=== PATIENT | female | born 1945 | race Caucasian/White ===

== ENCOUNTER 2021-05-15 07:18 | Emergency (ER) | payer OTHER, MEDICAID | END 2021-05-15 11:34 | LOC: ER 07:18 | PROVIDERS: Emergency Medicine | DX: F41.9 Anxiety disorder, unspecified (principal); Z20.822 Contact with and (suspected) exposure to COVID-19; Z91.041 Radiographic dye allergy status; Z88.8 Allergy status to other drugs, medicaments and biological substances ==

== ENCOUNTER 2021-05-15 12:01 | Inpatient (IN) | payer OTHER, MEDICAID ==
[~2021-05-15] VITALS: Ht 157.5 cm; Wt 56.8 kg
[2021-05-15 13:27] VITALS: BP 177/94
--- NOTE | 2021-05-15 14:53 | NUR ---
NEW ADMISSION FROM [facility] BROUGHT TO US FROM [facility]. 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 PATIENT HAS EXTREME ANXIETY AND RATES IT A 10, PATIENT HAS SEVERAL MEDICAL ISSUES. HTN,IBS,COPD,CHF, HAD UTI 05/15/21 WAS ON 10 DAY KEFLEX REGIME. PATIENT ALSO HAS CHRONIC PAIN PATIENT IS PLEASANT COOPERATIVE BUT VERY ANXIOUS. PATIENT GIVEN HALDOL 2.5 MG AND HALDOL 0.5 MG AT 1502 FOR ANXIETY. PATIENTS ABDOMNEN SOFT BOWEL SOUNDS PRESENT, PATIENTS LUNGS CLEAR PATIENT SAT IN DAY ROOM LISTENING TO GROUP. I CALLED PATIENTS SON KAIRA RAMÍREZ TO GET PERMISSION FOR CONSENTS; AND CODE GIVEN. WILL CONTINUE TO MONITOR PATIENT FOR SAFETY AND BEHAVIORS.
[2021-05-15 20:00] VITALS: BP 166/75
[2021-05-16 04:52] LABS: CHOLESTEROL 214 mg/dL (<200); HDL CHOLESTEROL 62 mg/dL (>40); LDL CHOLESTEROL 128 mg/dL (<100); TC:HDL 3.5 Ratio (Not establshd); TRIGLYCERIDE 122 mg/dL (<150); VLDL 24 mg/dL (<40)
[2021-05-16 05:15] LABS: SERUM ASSESSMENT c
[2021-05-16 09:55] VITALS: BP 153/66
--- NOTE | 2021-05-16 14:14 | NUR ---
Assumed pt care at 0700. pt was alert and oriented x4. Assessments completed, vss. Lungs clear, active bowel sound. Denies si/hi, denies pain. C/O nausea, zofran administered as ordered. Took meds whole, no difficulty noted. Ambulates with a W/C. pt is always seeking for meds this shift. Calm and cooperative with care. Requested for Ativan and hadol. Dr Shepherd notified. Pt wheels self out of her room to seek for meds. AT this time pt is in the day room requesting for Ativan ZOFRAN. WIll continue to monitor.
[2021-05-16 20:00] VITALS: BP 150/56
[2021-05-17 01:06] LABS: GLYCOHEMOGLOBIN (HGB A1C) 5.8 % (4.8-5.6)
--- NOTE | 2021-05-17 07:19 | NUR ---
05-16-21 CARE TRANSFERRED 0 OBSERVED PT SITTING IN DAY ROOM. LATER PT AAOX4, VSS, RR EVEN AND NONLABORED ON RA. PT DENIES SI/HI AND PAIN. PT PRESENTS CALM AND COOPERATIVE. DURING MEDICATION ADMIN PT REPORTED THAT HER OXYCONDONE IS MISSING, PT REPORTED THAT SHE HAS BEEN TAKING THIS MEDICATION FOR 50 YEARS, PT SOMATIC REQUESTING MEDICATION. PT HAD NO DIFFICULTIES TAKING MEDICATION WHOLE WITH WATER. LATER PT REPORTED SHE WAS WITHDRAWALING, PT SKIN W/D, NO TREMORS NOTED, PT REPORTED HAVING 3 BM ON AM SHIFT, ABD SOFT AND ACTIVE. NO ACTIVE S/S OF WITHDRAWL. PT CONTINUED TO BE MONITOR PER [facility] PROTOCOL.
[2021-05-17 09:41] VITALS: BP 156/59
--- NOTE | 2021-05-17 17:05 | NUR ---
Assumed pt care at 0700. pt was alert and oriented x4. Assessments completed, vss. Lungs clear, active bowel sound. Denies si/hi, denies pain but requested for oxycondone upon Am assessments. Pt stated she sees snakes in her bed and the are crawling all over her skin, because she has not taking her oxycondone. Pt was redirected. PRN ativan was administered for anxiety. Zofran was administered for Nausea. Ambulates with w/c and a walker. Took meds whole, no difficulty noted. Continent of bowel and bladder. Attention seeking all through the shift. Med seeking every 3O minutes. pt Stated she felt great after taking her oxycondone, AND she was able to eat her dinner. 1412 pt rated her pain at 8. AT this time pt stated she feels great. pt is currently in the day room. WILL CONTINUE TO MONITOR.
[2021-05-17 19:08] VITALS: BP 157/86
--- NOTE | 2021-05-18 04:34 | NUR ---
05-18-21 CARE TRANSFERRED 1899 OBSERVED PT IN W/CHAIR IN [facility]. LATER PT AAOX4, VSS, RR EVEN AND NONLABORED ON RA, PT DENIES SI/HI. PT REPORTS GENERLIZED PAIN AND SCORES AT AN 8 ON 0-10 SCALE. DURING MEDICATION ADMIN PT HAD NO DIFFICULTE TAKING MEDICATIO NWHOLE WITH WATER. REASSESSMENT PT SCORED PAIN AT A 4 ON 0-10 SCALE. LATER OBSERVED PT RESTING WITH EYES CLOSED. THEM PT CAME TO NURSING STATION AND STATED "HER LEGS WERE CRAMPING", NOTED MUSCLE WAS NOT TENSE. PT WANTED TO KNOW IF SHE COULD GET HER OXY AGAIN, PT EDUCATED THAT PAIN MEDICATION WAS SCHEDULE. PT REMAINED CALM AND COOPERATIVE, PT PRESENTS SOMATIC R/T DRUGS. PT WILL CONTINUE TO BE MONITOR PER [facility] PROTOCOL.
--- NOTE | 2021-05-18 09:16 | H ---
[facility] [place] [address] HISTORY AND PHYSICAL Name: MILAGRO GOMEZ Room #: 521B-B ADM IN M.R.#: [id number] Admission: 05/15/21 Attend Phys: Rashad Shepherd DO Discharge: Date of : 43 Report #: [id number] THIS REPORT FOR: cc: FAM - Family physician unknown FAM - Family physician unknown Rashad Shepherd DO ~ DATE OF SERVICE: 05/15/2021 INPATIENT PSYCHIATRIC EVALUATION ATTENDING PSYCHIATRIST: Rashad Shepherd DO VISCOSITY INSPECTOR: Rashad Mills MD ASSISTED DOCTOR: Dr. Humza Ornelas. SOURCES OF INFORMATION: Brief interview with the patient, voluminous records from [facility], where I believe the patient was just in the ER, but she may have had a brief medical stay, the patient will be a no code. CHIEF COMPLAINT: Anxious for 4 days. HISTORY OF PRESENT ILLNESS: This is a 76-year-old female, I believe, she is . She resides at [facility]. She presented to the [facility] Emergency Room with severe anxiety for 4 days' time. Meds are not helping. The patient has not slept in 3 days. She gives a history of alcoholism 30 years ago, but none recent, major depression and anxiety, possibly schizophrenia. Medical problems are noted to be hypertension, COPD, irritable bowel syndrome, chronic pain, congestive heart failure, UTI diagnosed in 05/15/2021. ALLERGIES: CONTRAST DYE, stopped breathing, MIRALAX AND SEROQUEL. LABORATORY DATA: The patient had a 12-lead EKG done in [facility], which showed a QTc by Fridericia 14 milliseconds, Bazett 145 milliseconds. R-R interval 156 milliseconds. Ventricular rate of 86. There was significant artifact. Vital signs in the ER stayed relatively stable. Labs from the ER: White count 11.7, H and H 10.7 and 34, platelet count 384. Sodium 138, potassium 4.6, chloride 103, bicarbonate 24, anion gap 11, glucose 121, BUN 10, creatinine 0.6, calcium 9.1, GFR 85.9. These labs were obtained on 05/15/2021 earlier in the day. Albumin level 4.2, total protein 7.0, alkaline phosphatase 100, AST 17, ALT 5, total bilirubin 0.3. Blood alcohol content is less than 10.1. Urine oxycodone is positive and the patient does take oxycodone due to the [facility] MARs. Her SARS-CoV-2 COVID-19 PCR was negative, done on 05/14/2021 at 2323. Urinalysis had positives, a small amount of blood, positive leukocyte esterase, few bacteria. It did trigger a culture, but I do not have [address] [address] HISTORY AND PHYSICAL Name: MILAGRO GOMEZ Room #: 521B-B ADM IN M.R.#: [id number] Admission: 05/15/21 Attend Phys: Rashad Shepherd DO Discharge: Date of : 43 Report #: [id number] urine culture results yet. Her urine drug screen was positive for barbiturates, benzodiazepines and oxycodone. SURGICAL HISTORY: Consists of hysterectomy, appendectomy and cholecystectomy. ADDITIONAL MEDICAL HISTORY: Includes cataract, cellulitis, pulmonary air embolism, paroxysmal atrial tachycardia, COPD, pulmonary edema, cystocele, osteoarthritis, fibromyalgia, pneumonia, reflux esophagitis. She did give a description of "my mind is going 100 miles an hour." MEDICATIONS: Her current medication list was messy to say the least, included Tylenol, alprazolam, ferrous sulfate, sumatriptan, mirtazapine, acetaminophen, carvedilol, ondansetron, magnesium oxide, dicyclomine, diclofenac, torsemide, Lactobacillus acidophilus, docusate senna, latanoprost ophthalmic, escitalopram, ocular lubricant, bisacodyl, atorvastatin, duloxetine, trazodone, oxycodone, oxybutynin, melatonin, lactase, famotidine, chlorhexidine topical. Gait was described at [facility] as existing deficit. No recent alcohol use. She had a stay at [facility] in 2019. Additional information from [facility], patient presented to ED from [facility] due to anxiety. The patient was very anxious, shaking, and restless, states that her medication stopped working and starting in January, her anxiety has increased. The patient reports over the past couple of weeks, her anxiety has been "out of control." She reports she has stopped eating and stopped sleeping. She reports she is unable to function appropriately because of the anxiety. The patient states "I feel like the devil is in me" and "my skin feels like there are snakes crawling around on." The patient kept saying "I want to , I want to ." The patient reports she is not depressed, but the anxiety is driving her to wanting to end her life. No plan or intent. 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 The patient reports that her heart is going to jump out of her chest and her brain is going 100 miles an hour. She denies previous suicide attempts. The patient has been inpatient in the past with most recent being [facility], this was for depression. The patient reports she is hospitalized approximately every 5 years for medication management for depression and anxiety. She reports she was an alcoholic, but it has been 40 years since she drank. She reports she feels the same way now than she did when she went through withdrawal. She has no family support. She lives at [facility] over the past 14 years. She [facility] went into the [facility] because she had CHF and was on hospice. That was 14 years ago. The patient is independent with all ADLs. The patient uses a wheelchair and walker and independent with transfers and notes that the patient does not want to go to a [facility]ane-psych facility. She wants to go to [facility] for inpatient psychiatric hospitalization. There are no signs of dementia or memory problems. I spoke [address] [address] HISTORY AND PHYSICAL Name: MILAGRO GOMEZ Room #: 521B-B [facility] IN M.R.#: [id number] Admission: 05/15/21 Attend Phys: Rashad Shepherd DO Discharge: Date of : 43 Report #: [id number] with the RN at [facility]. RN reports the patient did not start acting anxious until about 2:30 this afternoon. The patient wanted some of her meds discontinued like Xanax and trazodone. These were not discontinued because I know the patient needs them. The patient's Xanax was recently increased from 3 times a day to 4 times a day. The patient is normally independent. No memory issues. The patient requested to come to the hospital and see a psychiatrist. Apparently, they did not have rooms at [facility]. She stated "I feel like I have the mind of a 32-year-old." No recent travel history. As I review here, there are some duplicate documents. Additional information from the ER physician's note, it should be noted medical history states COPD, chronic pain, abnormal EKG, hypertension, lower urinary tract infection. Additional procedures, temporal artery biopsy 04/05/2021. Colonoscopy and EGD in 2017 and 2015. REVIEW OF SYSTEMS: All other pertinent systems were reviewed and were negative except for anxiety and feeling jittery. She denied chest pain or abdominal pain. Does feel mild nauseous today. Not sleeping. VITAL SIGNS: Temperature 36.1, pulse 116, respirations 18, BP 132/78. Corrected pulse of 82. MEDICATIONS ORDERED: Magnesium oxide 400 mg daily, ferrous sulfate 325 mg daily, escitalopram 10 mg daily, senna docusate 2 tabs b.i.d., potassium chloride 30 mEq p.o. b.i.d., mirtazapine increased to 15 mg at bedtime, atorvastatin 80 mg daily, lactase one tablet with meals, carvedilol 3.125 mg p.o. b.i.d., oxybutynin 5 mg twice a day with meals, Haldol 2.5, lorazepam 0.5 was given. The patient calmed down after that. She actually asked for an injection. PHYSICAL EXAMINATION: GENERAL: In wheelchair, frail appearing. MENTAL STATUS EXAMINATION: This is a well-developed, well-appearing female appearing stated age. Attention fair. Concentration fair. Speech normal rate and tone. Thought process: Linear and goal oriented. Thought content: Focused on her emotional somatic needs. No suicidal or homicidal ideation. No auditory, visual, or tactile hallucinations. Some helplessness and hopelessness. Mood and affect was constricted, congruent. Appeared anxious. Memory not formally tested. Insight and judgment limited. Fund of knowledge at least average. FORMULATION: A 76-year-old female with history of multiple psychiatric illnesses, presented as a transfer now from [facility]. DIAGNOSES: At this time, unspecified anxiety disorder, major depressive disorder by history. Morbidities are multiple and include hypertension, [facility] [address] [place] [address] HISTORY AND PHYSICAL Name: PATRICIAMILAGRO Room #: 521B-B ADM IN ..#: [id number] Admission: 05/15/21 Attend Phys: Rashad Shepherd DO Discharge: Date of : 43 Report #: [id number] incontinence, lactase deficiency, hyperlipidemia, iron deficiency. PLAN: The patient was admitted to [facility]. The patient is voluntary. It does look like she is on a consistent dose of Xanax 3-4 times a day, so I think I will add back on Xanax 0.5 mg 3 times a day. Actually as I think about it, we will go with Ativan 0.5 mg 3 times a day. My goal will be to taper off benzodiazepines completely. FAMILY HISTORY: She said her daughter has bipolar disorder. She has a son too. I would like to reach out with them for collateral. Estimated length of stay 10-14 days. STRENGTHS: She is insured, has a place to live. WEAKNESSES: Comorbidities include poor coping skills, advanced age. Time spent on interview, review of records and coordination of care is at least 60 minutes, greater than 50% of time was reviewing records and coordination of care. <ELECTRONICALLY SIGNED> By: Rashad Shepherd DO 05/18/21 0916 [id number] Rashad Shepherd DO /nt
[2021-05-18 09:31] VITALS: BP 155/70
--- NOTE | 2021-05-18 10:47 | NUR ---
Assumed pt care at 0700. pt was alert and oriented x4. Assessments completed, vss. Lungs clear, active bowel sound. Denies si/hi, C/o pain a 8am. Took meds whole, no difficulty noted. Ambulates with a steady gait. Cooperative with care. No sign of acute distress noted upon assessments. Continent of bowel and bladder. Makes needs known to staff. 0730 pt requested to get her oxycondone administered. Pt stated she need her oxycodone to breath. Sheet Rock Installation Helper Assessed and redirected pt. AT THIS TIME PT IS AMBULATING THROUGH THE UNIT HALLWAY. Will continue to monitor.
--- NOTE | 2021-05-18 16:13 | NUR ---
Updates faxed to [facility]
[2021-05-18 18:49] VITALS: BP 153/73
--- NOTE | 2021-05-19 01:28 | NUR ---
PATIENT CARE WAS RESUMED AT 1900. SHE IS ALERT AND OREINTED WAS SITTING IN THE DINING AREAS. SHE IS ABLE TO VERBALIZE HER NEEDS. SHE DENIES SI/AVH/HI.LUNGS ARE CLEAR BS ACTIVE X4 QUADS.SHE AMBULATES WIRH WHEELCHAIR. CONTINIET OF BOWEL AND BLADDER. SHE TOOK HER MEDS WHOLE.Q12 MINUTES CHECK ON GOING. BED IS LOW, LOCKED AND ALARMED.
[2021-05-19 09:13] VITALS: BP 163/73
[2021-05-19 09:14] VITALS: BP 169/65
[2021-05-19 10:31] VITALS: BP 163/73
--- NOTE | 2021-05-19 14:17 | NUR ---
Amparo was alert and oriented x4 throughout the day. She presented as calm, cooperative, and pleasant, with periods of situational anxiety. Pt became tearful and anxious this morning as pt was educated that shoe laces are not allowed on the unit and pt was noted with her sneasanaz woth shoe laces on, on the unit. Pt did not like this and required emotional support and pt was able to calm down. Pt voiced anxiety throughout the day 10/10; 10 being the worst. She denied feelings of depression, helplessness, and hopelessness. She denied SI/HI/PRIDE and contracted for safety. Pt has not been deemed a high fall risk but does move about the unit in a w/c due to weakness, although pt is able to ambulate short distances with a walker. Pt transfers herself independently to the bathroom/bed and back to her w/c without difficulty. Pt did not wish to eat breakfast this morning but did have an ensure. Pt was encouraged to increase her oral intake throughout the day. Pt is social with other peers on the unit and participates in groups. Pt voiced c/o back pain that is managed with her scheduled oxycodone; pt did not voice other physical complaints this shift and did not appear to be in any distress. A fax requesting pt's UA culture results was sent to [facility] per directions on their medical records automated messaging. Request was sent to be faxed to [facility] at . If results are not received in a timely manner may need to redo UA. Medication education was given today regarding pt's PRN and scheduled medications as pt believed she got klonopin last night, but was educated she received her remeron and zyprexa last HS. Pt is currently participating in afternoon group, will continue to monitor.
[2021-05-19 16:47] VITALS: BP 182/50
[2021-05-19 17:19] LABS: URINE BILIRUBIN NEGATIVE (Negative); URINE BLOOD TRACE (Negative); URINE CLARITY CLEAR; URINE COLOR YELLOW; URINE GLUCOSE-RANDOM* NEGATIVE (Negative); URINE KETONES NEGATIVE (Negative); URINE LEUKOCYTES-REFLEX 1+ (Negative); URINE NITRITE-REFLEX NEGATIVE (Negative); URINE PROTEIN (DIPSTICK) NEGATIVE (Negative); URINE UROBILINOGEN 0.2 E.U./dl (0.2-1.0)
[2021-05-19 17:36] LABS: CASTS None Seen /LPF (None Seen); SQUAMOUS 0-3 Few /LPF (0-3)
[2021-05-19 17:37] LABS: BACTERIA-REFLEX None Seen /HPF (None Seen); CRYSTALS None Seen /LPF (None Seen); URINE RBC 1-2 Rare /HPF (NONE SEEN); URINE WBC-REFLEX 0-5 Rare /HPF (0-5)
[2021-05-19 19:24] VITALS: BP 160/44
--- NOTE | 2021-05-19 23:43 | NUR ---
Pt Is Alert/oriented x 4 with intermittent anxiety, sitting day room conversing with patients. Pt is able to ambulate short distances but prefers to use w/c for mode of transportation. Pt did talk with her daughter a little tonight. Denies SI/HI/AH/VH, very pleasant. will continue to monitor throughout shift
[2021-05-20 07:20] VITALS: BP 183/64
[2021-05-20 09:40] VITALS: BP 183/64
--- NOTE | 2021-05-20 11:07 | NUR ---
Assumed care from overnight shift this am. Pt was in activity area eating breakfast upon assessment. Pt presented in a calm, relaxed manner during initial assessment and was oriented to person, place, time, and sitauation. Pt voiced concerns of depression and anxiety, but per pt, these concerns were not as pronounced as previously. Pt denied any si/hi and visual or audio hallucinations at this time. Pt voiced that she was having heart palpitations, though vitals presented normal. Dr. Mills met with pt during this shift to assess pt and ensure health care concerns, prescribing pt diflenoc cream. Pt kept presenting to nursing station, asking for cream, but was informed several times that cream had to verified and vetted through pharmacy and that the order needed to be put in by the physician per protocol. Pt demanded that this nurse call Dr. Mills to confirm order, which this nurse did to assist with pt anxiety. Pt voiced understanding and stated thanks. Pt is currently sitting in activity area with no further concerns at this time. Will continue to monitor for safety and psychiatric concerns.
--- NOTE | 2021-05-20 11:49 | NUR ---
Pt requests that she obtains shoes from locker. Understands that shoelace is reason that they are in locker. Attempts to expain without difficulty. When asked if she is willing to have shoe lace cut off she stated yes multiple times. Shoes obtained from locker and decorative shoe laces cut off in front of pt. Very appreciative, put shoes on herself and then was self propelling herself around unit.
[2021-05-20 19:30] VITALS: BP 171/51
--- NOTE | 2021-05-20 20:15 | NUR ---
ASSUMED CARE ON 05/20/21 @ 1900 PROPELLING SELF IN W/C, CALM COOPERATIVE WITH CARE. REPORTS PAIN OF 7/10 IN LEFT SHOULDER, L NECK AND BACK. REQUESTS OXY FOR PAIN OVER TYLENOL. WILL CONTINUE TO MONITOR FOR SAFETY AND COMFORT PER UNIT PROTOCOL.
[2021-05-21 08:42] VITALS: BP 190/73
--- NOTE | 2021-05-21 09:06 | NUR ---
Assumed care from overnight shift this am. Client was in activity area with feet propped up on chair. Client presented A&O x 4. During assessment, client stated that she was having increased anxiety and felt like her heart was racing. Client asked if there was anything she could have for her anxiety at this time. FABRIC WORKER SUPERVISOR stated that SALES EXPERT HOME THEATER would be asked. When assessing client, pulse was 95 and pulse ox 97. BP elevated at 190/73, which is norm for client. Client did not voice any heart pain during this assessment, though did state that her neck hurt. Client was given her normal pain medication for this. Client denied any suicidal and homicidal ideation. Client denied visual and audio hallucinations. Clear lung sounds; normal bowel sounds present. SALES EXPERT HOME THEATER Salud England was contacted to see if client could have any further medication to help alleviate anxiety as client has been expressing anxiety for several days despite coping skills. Zyprexa 2.5 at 1100 was moved to 0900 and prn Zyprexa 2.5 mg was ordered should client have any further anxiety throughout day. Client was notified of this change and given her Zyprexa 2.5 scheduled stat per provider. No further issues at this time. Will continue to monitor for safety and psychiatric concerns.
[2021-05-21 10:17] VITALS: BP 190/73
--- NOTE | 2021-05-21 10:38 | NUR ---
Faxed updates from 05/18 - 05/21 to [facility]
[2021-05-21 19:22] VITALS: BP 148/57
[2021-05-21 20:20] VITALS: BP 148/57
--- NOTE | 2021-05-22 03:49 | NUR ---
PATIENT WAS UP WITH JENNIFER. SHE WAS PLEASANT AND COOPERATIVE. SHE WAS A LITTLE FUSSY ABOUT THINGS AND WOULD COMPLAIN WITH SOMATIC SYMPTOMS OF STOMACH UPSET ONCE BUT FORGOT ABOUT IT BEFORE I WAS ABLE TO GIVE HER MYLANTA. SHE THEN TRACKED ME DOWN IN GUILLEN AFTER I GAVE HER HER MEDS AND STATES THAT HER LEFT EYE WAS FEELING SORE AND SHE COULDN'T SEE WELL AFTER I GAVE HER HER DROPS. SHE STATES IT FELT LIKE SAND PAPER. SO I GAVE HER ANOTHER DROP AND SHE WAS FINE. SHE CALLED AND SPOKE WITH HER DAUGHTER OUT OF TOWN JENNIFER BEFORE GOING TO BED. SHE IS A/0 X 4. SHE DENIES SI/HI/AVH. ROUTINE ROUNDS TO ASSESS SAFETY AND STATUS OF PATIENT. SHE IS A HIGH FALL RISK SO BED IN LOW POSITION AND BED ALARM IS ON. SHE IS ON OXYCONTIN FOR PAIN ISSUES.
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
[2021-05-22 09:06] VITALS: BP 179/60
[2021-05-22 09:45] VITALS: BP 179/60
--- NOTE | 2021-05-22 13:38 | NUR ---
PT ON DIALYSIS WHEN OT CAMEL TO TREAT
--- NOTE | 2021-05-22 13:56 | NUR ---
RT Progress Note- Amparo has been present for nearly all recreation therapy groups since her admission to [facility]. She has been an active participant and has made progress towards goals of managing anxiety through leisure coping skills. She is very vocal regarding her symptoms and is able to identify things she can do to relieve them such as meditation and deep breathing. Amparo has also been social on the unit and is seen in the milieu socializing with other patients during unscheduled time. MEDICAL STAFF ASSISTANT will continue to encourage participation and progress.
--- NOTE | 2021-05-22 16:34 | NUR ---
I have reviewed the documentation by KIARA BELLAMY from 05/22/21 to 05/22/21 and I concur with it. LEN PEARCE
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
[2021-05-22 19:09] VITALS: BP 170/50
[2021-05-22 20:15] VITALS: BP 170/50
--- NOTE | 2021-05-23 00:51 | NUR ---
PATIENT WAS UP IN DINING ROOM THIS EVENING. PATIENT BECAME MORE AND MORE ANXIOUS AND C/O OF NONCARDIAC CHEST PAIN AND CONSTIPATION. AFTER GIVING HER ZYPREXA WITH HS MEDS THIS EVENING SHE BEGAN COMPLAINING SHORTLY AFTER THAT HER TONGUE FELT TONGUE TIED AND SHE COULDN'T TALK RIGHT BECAUSE HER TONGUE WOULDN'T MOVE RIGHT. HER BP AT 1909 WAS 170/50. NEURO CHECK DONE ON PATIENT WNL. HER JAW WAS WNL AND NOT LOCKED UP. SHE DID NOT HAVE ANY FACIAL OR BODY TICS, NO FACIAL DEFORMATION. SPOKE WITH PATIENT AND DID BREATHING EXERCISE WITH HER TO RELAX. HER LUNG SOUNDS WERE DIMINISHED IN THE BASES AND EXPLAINED SHE SITS ALOT AND SHE SHOULD TAKE SOME DEEP BREATHS THRU THE DAY. SHE NOTICED HER LEFT CHEST WALL/SHOULDER DISCOMFORT (CHRONIC) SEEMED TO ACT UP MORE AFTER SHE'S BEEN SITTING IN A [facility] CHAIR SLOUCHED FOR LONG PERIOD OF TIME. PATIENT BECOMES MORE WORKED UP WITH SOMATIC SYMPTOMS THE MORE SHE RUMINATES ON GOING BACK TO THE SENIOR LIVING AND NOT BEING ABLE TO SLEEP. SHE HAS BEEN ON VALIUM AND XANAX FOR SEVERAL YEARS AT DIFFERENT TIMES AND IS NOW NOT ON ANY. RECHECKED PATIENT'S BP LATER IN EVENING AT 2215 AND BP WAS 220/90. CHECKED IT MANUALLY AND RECHECKED. CALLED DR HARKINS TO NOTIFY HIM. EARLIER I HAD SPOKEN WITH HIM REGARDING PT NIGHTMARES, AND THE TONGUE TIE. HE ORDERED PRAZOSIN 1MG FOR NIGHTMARES TO TAKE AT HS AND ONE TIME ATIVAN 1MG TO TAKE AROUND 2300. LET HIM KNOW WAS GOING TO CALL AKILA GIL BUT WANTED TO R/O ANY PSYCH SIDE EFFECTS. TOLD DR Carmen THAT SHE HAD THE SAME ISSUE EARLY THIS MORNING AFTER TAKING ZYPREXA AND THOUGHT MAYBE SHE WAS HAVING SIDEEFFECTS FROM. ORDER RECIEVED TO DC ALL OLANZAPINE AND SEE IF CONTINUES. DR Carmen SAID TO CALL OFE LEBLANC NP. ALERTED AKILA GIL AND TOLD HER I WAS GOING TO RECHECK BP OVER THE NEXT HOUR AND LET HER KNOW RESULTS. SHE LOOKED THRU PATIENT'S CHART AND HISTORY. PATIENT'S BP AT WENT DOWN TO 180/60 WITHIN 20MINUTES OF CALL WITH DR Carmen THEN IT WENT DOWN TO 150/60 30 MINUTES LATER. NOTIFIED Maureen LEBLANC NP. SHE SAID TO CALL HER IF GOES BACK UP AND SHE WILL ADJUST BP MED IF NEEDED. PATIENT IN BED NOW AND SLEEPING. CONTINUING TO MONITOR. BED IN LOW POSITION AND BED ALARM IS ON.
[2021-05-23 09:24] VITALS: BP 156/76
[2021-05-23 09:55] VITALS: BP 156/76
--- NOTE | 2021-05-23 13:45 | NUR ---
Assumed care from overnight shift this am. Client was in room getting ready and doing her ADLs. Client was A&O x 4 during this time, and stated that she had a significant amount of anxiety since her zyprexa was discontinued. Client stated that she wasn't feeling as much depression, but felt like her anxiety was overwhelming. Client stated that she was hoping to get something for this anxiety. Dr. Shepherd was informed of this, and prescribed 1 x daily 300 mg po lithium for client at 10:30am for mood. During assessment, client denied suicidal and homicidal thoughts. Client denied any auditory and visual hallucinations, stating that she has had them ten years prior, but no longer has them. Client lung sounds were clear; bowel sounds present. Client stated that she did, however, had some nausea, and was given prn zofran for this. Upon reassessment, client voiced it to be effective. No further concerns at this time. Will continue to monitor for client safety and psychiatric concerns.
[2021-05-23 19:40] VITALS: BP 150/48
[2021-05-23 20:00] VITALS: BP 176/58
--- NOTE | 2021-05-24 00:16 | NUR ---
AT ONSET OF SHIFT PT WAS SITTING IN DAY ROOM WATCHING TV. THIS SHIFT PT WAS ALERT AND ORIENTED X4. PT WAS COMPLIANT WITH MEDICATION AND VITAL SIGNS. AT THE BEGINNING OF THE SHIFT PT WAS CALM, PLEASANT AND COOPERATIVE. PT STATED SHE HAD A GREAT DAY AND FELT MUCH BETTER AFTER DISCONTINUING ZYPREXA. PT STATED SHE HAD NOT HAD A NIGHTMARE IN TWO DAYS AND HER MIND WAS NO LONGER RACING. PT DENIED DEPRESSION, ANXIETY, SI, HI AND AVH. LATER IN THE EVENING PT CAME TO THE NURSES STATION AT [facility]OX 2330 COMPLAINING OF WAKING UP WITH RACING THOUGHTS AND FELT UNCOMFORTABLE IN HER CHEST. BLOOD PRESSURE WAS OBTAINED; RESULTS 176/58, PULSE 74. PT STATED THAT LAST NIGHT HER BLOOD PRESSURE WAS VERY HIGH AND STATED SHE RECIEVED MEDICATION FOR HER BLOOD PRESSURE. MEDICATION GIVEN WAS ATIVAN. PT WAS ENCOURAGED TO GO BACK TO BED AND TRY TO USE COPING SKILLS TO RELAX. PT REQUESTED MAALOX TO HELP WITH INDIGESTION. PT COMPLAINED THAT SHE HAS NOT HAD A BOWEL MOVEMENT IN THREE DAYS. BOWEL SOUNDS ARE ACTIVE IN ALL FOUR QUADRANTS AND PT STATED SHE IS PASSING GAS. BED IN LOW POSITION AND PATIENT IN NON-SKID SOCKS. WILL CONTINUE TO MONITOR.
[2021-05-24 10:53] VITALS: BP 136/53
--- NOTE | 2021-05-24 14:50 | NUR ---
PATIENT HAS BEEN UP, AND OUT ON THE UNIT, USES WHEELCHAIR FOR MOBILITY, ABLE TO PROPEL, AND TRANSFER SELF. PATIENT TOOK ALL MEDICATION WHOLE WITHOUT DIFFICULTY, SHE IS EATING MEALS, AND DRINKING FLUID WELL. PATIENT DENIES SUICIDAL/HOMICIDAL IDEATION, SHE DENIES DEPRESSION/ANXIETY, RATES LEFT UPPER BACK/SHOULDER PAIN 02/11, SHE GETS SCHEDULE PAIN PAIN MEDS. PATIENT PARTICIPATES IN GROUP THERAPY, SHE IS INTRUSIVE TOWARDS PEERS CASES, SHE IS REDIRECTABLE THOUGH. AFFECT IS EXPANSIVE, MOOD IS APPROPRIATE. PRN MILK OF MAGNESIA GIVEN FOR C/O CONSTIPATION, STATES HAS NOT HAD BOWEL MOVEMENT X 3 DAYS. MOM WAS EFFECTIVE, SHE HAD LARGE FORMED BOWEL MOVEMENT. NO SGIN OF ACUTE DISTRESS NOTED AT THIS TIME, WILL MONITOR FOR SAFETY.
--- NOTE | 2021-05-24 17:20 | NUR ---
Faxed updates to [facility]. Also spoke with the DON and provided a verbally update on the Pt.
[2021-05-24 19:27] VITALS: BP 147/53
--- NOTE | 2021-05-25 03:20 | NUR ---
PATIENT RESTING IN THE COMMON AREA WATCHING TV. PT IS AAOX3. STATES THAT HER EYES HAVE BEEN BOTHERING HER AFTER GETTING SOAP IN THEM WHEN TAKING A SHOWER EARLIER IN THE DAY. NO REDNESS OR SWELLING NOTED. PT STATES THAT HER EYES WERE WATERING HEAVILY BUT NO LIQUID WAS NOTED DURING THE ASSESSMENT. PATIENT ALSO COMPLAINED OF INDIGESTION AND THAT HER GUMS WERE SORE. ADMINISTERED MYLANTA PRN AND NYSTATIN PO WHICH IS NEWLY ORDERED. PT AMBULATES WITH THE ASSISTANCE OF A WALKER. NO S/S OF DISTRESS NOTED. WILL CONTINUE TO MONITOR.
[2021-05-25 07:48] VITALS: BP 137/52
[2021-05-25 09:23] VITALS: BP 137/52
--- NOTE | 2021-05-25 18:10 | NUR ---
Amparo was alert and oriented x4 throughout the day. She presented as calm, cooperative, and pleasant with an appropriate affect. She appeared less anxious today and voiced less somatic complaints than previous days. She was noted walking around the unit more and was smiling often throughout the day. She denied SI/HI/PRIDE and still voiced c/o of anxiety. She denied symptoms of depression and stated "I wish I was depressed, cause then I could actually sleep all the time". She voiced concerns about her BP medication, coreg, and stated she spoke to Dr. Rousseau regarding this. Pt's BP at 1735 was 142/38 (manually). Dr. Rousseau was paged and BP was reported. Order to give 1700 coreg as long as pt was not symptomatic as in feeling dizzy when she stands. At that time, pt had not voiced c.o dizziness or light headedness this shift to this RN but when pt was educated on this pt stated "that has been my main complaint that I've been dizzy and lightheaded when I'm walking". For this reason, 1700 coreg was held. Pt had c/o left shoulder pain that was partially relieved with her scheduled medications. Pt has new orders for an increase of prazosin to 2 mg to start tonight. Will continue to monitor.
[2021-05-25 19:19] VITALS: BP 160/47
--- NOTE | 2021-05-25 22:52 | NUR ---
PATIENT RESTING IN THE COMMON AREA WATCHING TV. SHE IS AAOX4. SHE STATES THAT SHE IS DOING WELL AND WAS ABLE TO SPEAK TO THE PROVIDER TODAY TO DISCUSS HER ANXIETY AND BLOOD PRESSURE. SHE DENIES HAVING ANY ANXIETY AT THIS TIME. SHE STATES THAT HER MOUTH IS STILL SORE BUT THE NYSTATION RINSE SEEMS TO HELP. SHE IS CALM COOPERATIVE AND COMPLIANT. WILL CONTINUE TO MONITOR FO RCHANGES IN STATUS.
[2021-05-26 08:49] VITALS: BP 144/56
--- NOTE | 2021-05-26 11:28 | NUR ---
ASSUMED CARE OF PATIENT AT 0700, PATIENT ALERT AND OREINTED X4, PATIENT AWAKE LAYING IN BED, GOT UP FOR BREAKAST, BLOOD PRESSURE 144/56, HR OF 91, BOWEL SOUND ACTIVE WITH SOFT AND ROUNDED ABDOMEN, LUNGS CLEAR, SKIN INTACT, NO EDEMA NOTED, PATIENT COMPLAINED OF PAIN, PAIN MEDICATION PRN WAS GIVEN, PATIENT TOOK MEDICATION WHOLE, ATTEND AND PATICIPATED IN GROUP, NO BEHAVIOR CHANGES, PATIENT DENIES SI/HI, WILL CONTINUE TO MONITOR FOR SAFETY AND BEHAVIOR. PATIENT AMBULATE ON A WHEEL/CHAIR
[2021-05-26 19:30] VITALS: BP 151/47
[2021-05-27 09:17] VITALS: BP 157/61
[2021-05-27 12:22] VITALS: BP 157/61
--- NOTE | 2021-05-27 19:24 | NUR ---
Patient care resummed, patient was up and in the dayroom apon shift change. Patient meal and medication compliant. Patient SI/HI/AVH, but stated to MANUFACTURING ENGINEER SUPERVISOR in the dayroom "I just want to go to sleep and never wake up." Patient made this comment to MANUFACTURING ENGINEER SUPERVISOR after GRADUATE TEACHING ASSISTANT informed patient she did not have any Ativan that could be given to her. Patient presented to be calm, pleasent but a little withdrawn today. Patient is A&O*4, lung sounds are clear, abdomen is soft with bowel sounds present. patient complained of generalized upper back pain today multiple times and was given her Oxycodone per ordered for so pain. Patient did state to GRADUATE TEACHING ASSISTANT she has having increased anxiety and depression. Patient does use W/C to ambulate, but patient does walk behind her W/C at times throughout the day. Will continue to monitor the patient for safety and behaviors.
[2021-05-27 20:25] VITALS: BP 155/45
--- NOTE | 2021-05-27 23:43 | NUR ---
PATIENT RESTING IN THE COMMON AREA. WENT TO BED RELATIVELY EARLY FROM HER NORM. SHE STATES THAT SHE HAD A "REALLY BAD ANXIETY ATTACK THIS MORNING." PATIENT CONTINUES TO INQUIRE ABOUT GETTING ON ADDITIONAL ANXIETY MEDICATIONS. SHE DID NOT HAVE ANY OTHER COMPLAINTS. STATES THAT SHE DOES NOT THINK THAT SHE WILL BE READY FOR HER SCHEDULED DISCHARGE DATE DUE TO HER ANXIETY. PATIENT OBJECTIVELY DOES NOT APPEAR TO HAVE ANY SYMPTOMS OF ANXIETY DURING THE EVENING SHIFTS. SHE DENIES ANY OTHER ISSUES AT THIS TIME. HER B/P CONTINUES TO BE ELEVATED AT MOST TIMES. WILL CONTINUE TO MONITOR FOR CHANGES IN STATUS.
[2021-05-28 09:32] VITALS: BP 132/59
[2021-05-28 09:41] VITALS: BP 132/59
--- NOTE | 2021-05-28 13:24 | NUR ---
Assumed care from rn shift mgr this am. Client was in room resting on bed. Client was oriented to 4x during this time, and expressed anxiety over mood. Client presented with anxiety, though stated that she was not depressed at this time. Client was unable to rate anxiety, but stated that it was present. CHIEF JAILER used therapeutic communication at this time to discuss client's mood and anxiety as client voiced not knowing any coping skills beside deep breathing. CHIEF JAILER and client spoke about using coloring, grounding, and reading as different coping skills that client could use to reorient herself to her environment and help with her anxiety. Client stated that she would try these coping skills as she hadn't tried them prior. Client made goals of going to group and learning new coping skills today. Client did not voice any thoughts of suicide or homicide during this time. Client denied any audio or visual hallucinations. Lung sounds were clear; bowel sounds present. Client stated persistent diarrhea and was given prn loperamide for this with morning medications. Client was later given zofran and mylanta prn due to still expressing nausea and gas. During BARIATRIC SURGEON Yessi's visit, client was given one time prn dose of atarax for anxiety which this nurse administered. Client voiced that all of the preceding prns helped. No further concerns at this time. Will continue to monitor for pt safety and client concerns.
[2021-05-28 19:46] VITALS: BP 168/39
--- NOTE | 2021-05-29 01:53 | NUR ---
PATIENT RESTING IN THE COMMON AREA WATCHING TV. SHE DID NOT STAY OUT LONG AND WENT TO BED AROUND 1999. PATIENT STATES THAT SHE WAS READY FOR BED. SHE STATES THAT SHE IS CONTINUING TO HAVE NIGHTMARES ALTHOUGH HER PRAZOSIN HAS BEEN INCREASED. SHE INITIALLY SAID THAT SHE DID NOT HAVE A NIGHTMARE AFTER THE DOSE WAS INCREASED. HER VITAL SIGNS CONTIUE TO SHOW A WIDENED PULSE PRESSURE. SHE DOES TAKE ALL MEDICATIONS PRESCRIBED. SHE IS AAOX4. CALM AND COOPERATIVE. WILL CONTINUE TO MONITOR FOR CHANGES IN STATUS.
[2021-05-29 09:00] VITALS: BP 139/62
[2021-05-29 09:30] VITALS: BP 139/62
--- NOTE | 2021-05-29 11:09 | NUR ---
Assumed care from overnight shift this am. Client was in bedroom resting on bed. Client expressed that she did not want to get up out of bed due to anxiety. Client stated that she had difficult dreams and was experiencing vertigo. Client stated that she was worried about going back to her care home tomorrow. Client was assured that her symptoms were made known to providers yesterday, and head of bed was raised to help with vertigo and orthostatic bp. Client was encouraged to sit on edge of bed for several minutes, and then get up. Client expressed further anxiety, but denied depression. Client was alert and oriented 4x, but did not want to attend groups. Client was encouraged to attend groups, especially as this was her last day at facility. Staff used therapeutic communication to engage client to attend groups, and continued assessment. Client denied suicidal thoughts and homicidal thoughts. Client also denied visual and audio hallucinations. Client stated shoulder and neck pain at 8 before administration of oxy which was partially alleviated to a 2 later after administration. Client lung sounds clear; bowel sounds present. Client was encouraged to go to activity area after this, and further therapeutic communication and coping skill guiding was used until client experienced decreased anxiety. No further concerns at this time. Will continue to monitor for pt safety and concerns.
--- NOTE | 2021-05-29 17:17 | NUR ---
KAUSHAL spoke with the DON at [facility] concerning discharge. They are able to accept the Pt back. Discharge was set for 05/30/2021 @ 11am. [place] [facility] will provide transportation.
[2021-05-29 19:45] VITALS: BP 163/49
[2021-05-29 20:18] VITALS: BP 163/49
--- NOTE | 2021-05-30 01:59 | NUR ---
PATIENT CARE WAS RESUMED AT 1900. SHE WAS SITTING IN THE DININIG ROOM SOCIALIZING WITH OTHER STAFF. SHE IS ABLE TO VERBALIZE HER CONCERNS. SHE WAS CONCERNED ABOUT HER MEDICATION DOSAGE AND NURSE EXPLAINED HER MED REGIMEN TO HER. SHE IS CONTINIENT OF BOWEL AND BLADDER. ABD SOFT AND NON TENDER. BED IS LOW, LOCKED AND Q 12MINUTES NURSES CHECK IS ONGONIG. CONTINUE CARE
--- NOTE | 2021-05-30 05:33 | NUR ---
PATIENT WOKE UP AT 0525 AND CAME TO THE NURSING STAYING SAYING AM SOA. NURSE ASSESSED PATIENT'S VITAL AND NOTED 146/56,99%, 98, 97.2, 18 . SHE WAS REASSUED, AND NURSE OFFERED SOME DRINK OF WATER AND SHE DRANK VERY GOOD.SHE IA AWARE OF HOME TODAY. SHE DENIES ANY PAINS AT THIS TIME CONTINUE CARE AND MONITOR.
[2021-05-30 09:33] VITALS: BP 130/62
[2021-05-30] MEDS ORDERED: IRON325 PO (09:39)
[2021-05-30] MEDS ORDERED: LIPITOR80 MG PO (09:39)
[2021-05-30] MEDS ORDERED: PRAZOSIN HCL1 MG PO (09:40)
[2021-05-30] MEDS ORDERED: CARVEDILOL3.125 MG PO (09:41)
[2021-05-30] MEDS ORDERED: OXYCODONE HCL 55 MG PO (09:42)
[2021-05-30] MEDS ORDERED: REMERON 30 MG T30 M1 PO (09:42)
[2021-05-30] MEDS ORDERED: LITHIUM CARBON300 M3 PO (09:43)
[2021-05-30] MEDS ORDERED: LITHIUM CARBON150 MG PO (09:44)
[2021-05-30] MEDS ORDERED: KLOR-CON 10 ER10 MEQ PO (09:45)
[2021-05-30] MEDS ORDERED: LACTASE FAS9000 UNIT PO (09:46)
[2021-05-30] MEDS ORDERED: XALATAN2.5 ML OPHTHALMIC (09:46)
--- NOTE | 2021-05-30 15:19 | NUR ---
Assumed pt care at 0700. Pt was alert and oriented x4. Assessments completed, vss. Took meds whole, no difficulty noted. Ambulates with w/c. Anxious about going home. Cooperative with care and assessment. Lungs clear, active bowel sounds. Denies si/hi, c/o pain. pain meds administered as ordered. 1410 pt was d/c via w/c with belongings, d/c instrution, d/c summary. 1500 Report was called to [facility] of [facility].
--- NOTE | 2021-05-31 21:46 | D ---
[facility] [place] [address] DISCHARGE SUMMARY Name: MILAGRO GOMEZ Room #: 521B-B [facility] IN M.R.#: [id number] Admission: 05/15/21 Attend Phys: Rashad Shepherd DO Discharge: 05/30/21 Date of : 43 Report #: [id number] THIS REPORT FOR: cc: FAM - Family physician unknown FAM - Family physician unknown Rashad Shepherd DO ~ DATE OF SERVICE: 05/30/2021 PSYCHIATRIC DISCHARGE SUMMARY ATTENDING PSYCHIATRIST: Rashad Shepherd DO EDUCATIONAL FUNDRAISING DIRECTOR: Naun Rousseau MD DISCHARGE DIAGNOSES: Major neurocognitive disorder, recurrent, severe; unspecified anxiety. Medical comorbidities include sinus tachycardia likely associated with anxiety, chest pain or sternum pain, hypertension, irritable bowel syndrome with chronic narcotic use, multiple medical problems. The patient is discharging to long-term care at [facility] where she resided before admission. Psychiatric and medical care per receiving facility. Mild cognitive impairment. DISCHARGE INSTRUCTIONS: Regular diet. Activity level as tolerated. Recommending trial of physical therapy. The patient continued to over-mobilize in wheelchair. Recommend supplemental Ensure Enlive 3 times a day with meals. DISCHARGE MEDICATIONS: Include ferrous sulfate 325 mg oral daily for iron supplementation, atorvastatin 80 mg oral at bedtime for hyperlipidemia, prazosin 2 mg oral at bedtime for nightmares, carvedilol 3.125 mg oral twice a day with meals for hypertension, oxycodone IR 5 mg oral 3 times a day for chronic pain, mirtazapine 30 mg oral at bedtime for depression for sleep and appetite, lithium carbonate 300 mg at 2100 and 50 mg at 0900 for mood stability, potassium chloride 10 mEq oral daily for supplementation, latanoprost 0.05% drops one drop each eye at bedtime, lactase 9000 units oral with meals for lactose intolerance. LABORATORY DATA: Significant laboratories this admission included hemoglobin A1c 5.8, triglycerides 122, cholesterol 214, LDL 120, HDL 62. Urinalysis was negative except 1+ leukocyte esterase and trace blood on 05/19. Toxicology including a lithium level. This is at 300 mg b.i.d. at 1.11. I did reduce it to 150 mg in the morning, 300 at night due to vague complaints of worsening hand tremors and blurry vision; however, these complaints attributable to lithium. Her COVID-19 PCR was negative on , , , and . Microbiology on this admission, urine culture on 05/19, culture normal genitourinary dinorah. REASON FOR ADMISSION: Back on 05/15, a 76-year-old female, , resides at [facility], reporting severe anxiety for 4 days, not slept in 3 [facility] [address] [place] [address] DISCHARGE SUMMARY Name: PATRICIA,MILAGRO Delgado Room #: 521B-B [facility] IN [facility]#: [id number] Admission: 05/15/21 Attend Phys: Rashad Shepherd DO Discharge: 05/30/21 Date of : 43 Report #: [id number] days, gives a history of alcoholism 30 years ago, none recent; history of major depression and anxiety. HOSPITAL COURSE: The patient was admitted to Geriatric Psychiatry Unit. I tried the patient on a couple regimes before we settled on the mirtazapine and the lithium regimen. This included olanzapine, duloxetine and some intermittent lorazepam. The patient seemed to have multiple somatic complaints with the early regimes. I made the decision to try lithium. The complaints were particularly prominent with atypical antipsychotics. The patient's son was involved somewhat. He lives in [place]. We discussed the case. The patient has a long history of somatic complaints, problems with psychiatric medication regimens, questionable failure of outpatient followup on the patient's part. The son has not visited apparently the mother since beginning of the pandemic, it is another exacerbating factor. We talked about improving this with the patient and son alike. The patient's sleep improved overall. She was sleeping over 8 hours at time of discharge, not suicidal or homicidal, felt to be ready for step-down. She is in long-term care. VITAL SIGNS: Temperature 36.8, pulse 112, respirations 18, BP 130/60, O2 sat 96%. MUSCULOSKELETAL: In wheelchair, some anxious appearing. MENTAL STATUS EXAMINATION: Well-developed, somewhat ill, disabled-appearing female. Attention and concentration fair. Speech normal in rate. Thought process, linear and goal directed. Thought content focused on somatic and medication concerns. She was just asking for Ativan in the morning of discharge and it was explained that it was not going to be given due to the fall risk and needing her on top shape for transfer back to long-term care facility. Memory not formally tested on day of discharge. She was 23/30, some mild cognitive impairment, diagnosed during this admission. Insight and judgment fair to limited. Fund of knowledge at least average. Prognosis is fair to guarded given age, problems with compliance. <ELECTRONICALLY SIGNED> By: Rashad Shepherd DO 05/31/212145 01 14 Rashad Shepherd, DO /nt
== END 2021-05-30 14:00 | DRG 885 ==
LOC: SBH
PROVIDERS: ADMIT Psychiatry & Neurology Psychiatry; ATTEND Psychiatry & Neurology Psychiatry
DX: F33.1 Major depressive disorder, recurrent, moderate (principal); F01.50 Vascular dementia, unspecified severity, without behavioral disturbance, psychotic disturbance, mood disturbance, and anxiety; E43 Unspecified severe protein-calorie malnutrition; F11.20 Opioid dependence, uncomplicated; F03.91 Unspecified dementia, unspecified severity, with behavioral disturbance; F41.9 Anxiety disorder, unspecified; Z20.822 Contact with and (suspected) exposure to COVID-19; J44.9 Chronic obstructive pulmonary disease, unspecified; I10 Essential (primary) hypertension; K58.9 Irritable bowel syndrome, unspecified; Z91.041 Radiographic dye allergy status; Z90.710 Acquired absence of both cervix and uterus; Z90.49 Acquired absence of other specified parts of digestive tract; Z68.21 Body mass index [BMI] 21.0-21.9, adult; Z86.711 Personal history of pulmonary embolism; Z68.22 Body mass index [BMI] 22.0-22.9, adult; Z79.899 Other long term (current) drug therapy; Z23 Encounter for immunization
CPT/HCPCS: 10880